=== PATIENT | female | born 1990 | race Two or more races ===

== ENCOUNTER 2016-10-29 10:14 | Outpatient (CLI) | payer OTHER | END 2016-10-29 10:15 | disposition home or self-care (01) | LOC: NC 10:14 | PROVIDERS: ATTEND Obstetrics & Gynecology | DX: O24.419 Gestational diabetes mellitus in pregnancy, unspecified control (principal); Z87.891 Personal history of nicotine dependence; Z71.3 Dietary counseling and surveillance ==